=== PATIENT | female | born 2000 | race Caucasian/White ===

== ENCOUNTER 2018-01-21 20:55 | Inpatient (IN) | payer MEDICAID ==
[~2018-01-21] VITALS: Ht 157.5 cm; Wt 59.0 kg
[2018-01-21 21:07] VITALS: BP 124/72
--- NOTE | 2018-01-21 21:20 | NUR ---
TO LOBBY, A/W BED, AMB, STABLE, ERMD NOTED
--- NOTE | 2018-01-21 22:27 | NUR ---
PATIENT AMBULATED TO ER CHAIR B
[2018-01-21] MEDS ORDERED: NACL 0.9% 1,000 ML IV ONE (23:25)
[2018-01-21] MEDS ORDERED: ONDANSETRON 4 MG/2 ML VIAL IVP ONE (23:25)
[2018-01-21] MEDS ORDERED: DICYCLOMINE 20 MG/2 ML VIAL IM ONE (23:25)
[2018-01-21 23:53] LABS: ANION GAP 14.9 (8-16); CARBON DIOXIDE 21.3 mmol/L (21-32); CREATININE 0.8 mg/dL (0.6-1.3); HEMATOCRIT 39.8 % (36-48); HEMOGLOBIN 13.1 g/dL (12.0-16.0); MEAN CORPUSCULAR HEMOGLOBIN 28 pg (27-31); MEAN CORPUSCULAR HGB CONC 33 g/dL (33-37); MEAN CORPUSCULAR VOLUME 85.7 fL (80-94); PLATELET COUNT (AUTO) 311 K/uL (140-450); POTASSIUM 3.2 mmol/L (3.5-5.1); RED BLOOD CELL COUNT(AUTO) 4.65 MIL/uL (4.20-5.40); RED CELL DISTRIBUTION WIDTH 13.4 % (11.6-13.7)
[2018-01-22] LABS: ALBUMIN 4.2 g/dL (3.4-5.0); TOTAL BILIRUBIN 0.4 mg/dL (0.0-1.0)
--- NOTE | 2018-01-22 | NUR ---
17Y/F PT. PRESENTS TO ED WITH C/O ABDOMINAL PAIN X 2 DAYS. ALSO STATES N/V/D. AAO X4, AMBULATORY WITH STDEAY GAIT. RESPIRATIONS ROOM AIR, EVEN AND UNLABORED. ABDOMEN SOFT, NON TENDER, ACTIVE BS X4. C/O PAIN 10/10. POSITION PT. FOR COMFORT. VSS, ER MD MADE AWARE OF PT. STATUS.
--- NOTE | 2018-01-22 | NUR ---
PT.AMBULATED TO ER BED 10
--- NOTE | 2018-01-22 | NUR ---
MOVED TO ER BED 10
[2018-01-22 00:06] LABS: WHITE BLOOD COUNT (AUTO) 15.6 K/uL (4.5-11.0)
[2018-01-22 00:07] LABS: LYMPHOCYTES % (MANUAL) 7 % (20-46); MONOCYTES % (MANUAL) 1 % (5-12)
--- NOTE | 2018-01-22 00:30 | NUR ---
REPORT GIVEN TO WALTER COSBY.
[2018-01-22 00:54] LABS: APPEARANCE,URINE SL CLOUDY (CLEAR); BILIRUBIN,URINE NEGATIVE (NEGATIVE); BLOOD, URINE TRACE-I (NEGATIVE); COLOR,URINE YELLOW (YELLOW); LEUKOCYTE ESTERASE ,URINE NEGATIVE (NEGATIVE); NITRITE, URINE NEGATIVE (NEGATIVE); UGLUCOSE NEGATIVE (NEGATIVE)
[2018-01-22 01:08] LABS: RBC,URINE 0-5 (RARE) /HPF (0-5); WBC,URINE 0-5 (RARE) /HPF (0-5)
[2018-01-22 01:09] LABS: YEAST,URINE Many /HPF (None Seen)
[2018-01-22] MEDS ORDERED: metroNIDAZOLE 500 MG/NS PREMIX 100 ML IV ONE (01:25)
[2018-01-22] MEDS ORDERED: POTASSIUM CHLORIDE 10 MEQ TABER PO ONE (01:25)
[2018-01-22] MEDS ORDERED: NACL 0.9% 1,000 ML IV ONE (01:25)
[2018-01-22] MEDS ORDERED: KETOROLAC 30 MG/ML VIAL IVP ONE (01:25)
--- NOTE | 2018-01-22 02:00 | NUR ---
Patient appears to be resting comfortably in bed. Vital Signs within normal limits. Respirations even and unlabored.
[2018-01-22] MEDS ORDERED: fentaNYL 0.05 MG/ML VIAL IVP ONE (02:55)
[2018-01-22] MEDS ORDERED: KETOROLAC 30 MG/ML VIAL IVP PRN (03:20)
[2018-01-22] MEDS ORDERED: HYDROcodone/APAP 7.5/325 MG 1 TAB PO PRN (03:20)
[2018-01-22] MEDS ORDERED: ACETAMINOPHEN 325 MG TAB PO PRN (03:20)
[2018-01-22] MEDS ORDERED: ONDANSETRON 4 MG/2 ML VIAL IM/IVP PRN (03:20)
[2018-01-22] MEDS ORDERED: DOCUSATE SODIUM 100 MG GELCAP PO PRN (03:20)
[2018-01-22] MEDS ORDERED: NACL 0.9% 1,000 ML IV SCH (03:20)
[2018-01-22] MEDS ORDERED: MORPHINE SULFATE 2 MG/ML SYR IVP PRN (03:20)
[2018-01-22] MEDS ORDERED: LEVOFLOXACIN 750 MG/D5W PREMIX 150 ML IV SCH ×2 (03:30→04:55)
--- NOTE | 2018-01-22 03:40 | NUR ---
Patient will be admitted to care of . Admited to TELEMETRY. Will go to room 118. Belongings list completed. Report to WALTER ABDI.
[2018-01-22 03:42] LABS: BARBITURATE, URINE NEG. ng/ml (NEG <=200); BENZODIAZEPINE, URINE NEG. ng/mL (NEG <=200); CANNABINOID, URINE POS. ng/mL (NEG <=50); COCAINE, URINE NEG. ng/mL (NEG <=300); OPIATE, URINE NEG. ng/mL (NEG <=2000); PHENCYCLIDINE SCREEN,URINE NEG. ng/mL (NEG <=25)
[2018-01-22 04:00] VITALS: BP 110/66
--- NOTE | 2018-01-22 04:00 | NUR ---
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
[2018-01-22 04:40] LABS: CHOL/HDL RATIO 2.5 (1-4.5); MAGNESIUM 1.7 mg/dL (1.8-2.4); PHOSPHORUS 3.1 mg/dL (2.5-4.9)
--- NOTE | 2018-01-22 06:20 | NUR ---
PT SLEEPING AT THIS;TIME IV ON LEFT AC INFUSING WELL LEVAQUIN AT THIS TIME NOT LIQUID STOOL SEEN AT THIS TIME PT WILL BE ENDORSED TO DAY SHIFT NURSE TO CONTINUITY OF CARE.
[2018-01-22 08:00] VITALS: BP 105/59
[2018-01-22] MEDS ORDERED: BISMUTH SUBSALICYLATE 15 ML UDBTL PO SCH (09:00)
[2018-01-22] MEDS ORDERED: metroNIDAZOLE 500 MG/NS PREMIX 100 ML IV SCH ×2 (09:00→13:00)
[2018-01-22] MEDS ORDERED: POTASSIUM CHLORIDE 10 MEQ TABER PO SCH (09:00)
[2018-01-22] MEDS ORDERED: FLUCONAZOLE 100 MG TAB PO SCH (09:00)
[2018-01-22] MEDS ORDERED: LACTOBACILLUS RHAMNOSUS GG 1 EACH CAP PO SCH (09:00)
--- NOTE | 2018-01-22 09:30 | NUR ---
PATIENT ASKED TO LEAVE AMA. WHEN ASKED WHY SHE STATED, "I FEEL A LOT BETTER AND HAVE NO ABD PAIN, I CAN TAKE CARE OF MYSELF AT HOME." DR GREY WAS NOTIFIED AND CAME TO SEE PATIENT. EXPLAINED THE RISKS OF LEAVING AMA AND ENCOURAGED PATIENT TO STAY UNTIL CULTURES HAVE BEEN SENT IN AND CAN TREAT ANY POSSIBLE INFECTION ACCORDINGLY DURING HER STAY. INSISTED ON THE BENEFITS OF STAYING AND BEING TREATED AT THE HOSPITAL. PATIENT INSISTED SHE FEELS BETTER, AND SAID, "I CAN GO HOME WITH MEDICATIONS AND TAKE CARE OF MYSELF AT HOME, I UNDERSTAND THE RISKS BUT I WOULD RATHER BE AT HOME." DR GREY AGREED TO PRESCRIBE MEDICATIONS FOR HER. PATIENT IS IN ROOM AND WILL BE LEAVING AMA.
--- NOTE | 2018-01-22 10:00 | NUR ---
PATIENT LEFT AMA, AMB OFF UNIT IN STABLE CONDITION.
--- NOTE | 2018-01-22 11:21 | NUR ---
CM NOTE PER [facility] JAMES PFEIFFER # [phone], REVIEWS SHOULD ONLY BE SENT TO [facility]. INITIAL REVIEW FAXED TO [facility] [phone] ATTN: JAMES PFEIFFER # [id number] [phone].
[2018-01-23] MEDS ORDERED: LEVOFLOXACIN 750 MG/D5W PREMIX 150 ML IV SCH (03:30)
[2018-01-23 06:39] LABS: T4 (THYROXINE) 7.2 ug/dL (4.5-12.0)
[2018-01-23] MEDS ORDERED: FLUCONAZOLE 100 MG TAB PO SCH (09:00)
== END 2018-01-22 10:00 | disposition left against medical advice (07) | DRG 720 ==
LOC: MED 20:55 → MTU 01-22 03:24
PROVIDERS: ADMIT Family Medicine Sports Medicine; ATTEND Family Medicine Sports Medicine
DX: A41.9 Sepsis, unspecified organism (principal); G92 Toxic encephalopathy; B37.89 Other sites of candidiasis; E87.1 Hypo-osmolality and hyponatremia; E83.42 Hypomagnesemia; N39.0 Urinary tract infection, site not specified; K52.9 Noninfective gastroenteritis and colitis, unspecified; E87.6 Hypokalemia; T40.7X5A Adverse effect of cannabis (derivatives), initial encounter; Z53.21 Procedure and treatment not carried out due to patient leaving prior to being seen by health care provider; B96.89 Other specified bacterial agents as the cause of diseases classified elsewhere; Y92.89 Other specified places as the place of occurrence of the external cause
CPT/HCPCS: 36415; 71045; 80053; 80305; 81001; 81025; 83036; 83605; 83690; 83735; 83880; 84100; 84436; 84479; 85025; 85610; 85730; 87040; 87081; 87086; 96361; 96372; 96374; 96375; 99285; J0500; J1885; J1956; J2405; J3010; J3490; J7030; Q0092